=== PATIENT | male | born 1965 | race Caucasian/White ===

== ENCOUNTER 2016-08-13 09:54 | Emergency (ER) | payer SELFPAY ==
[~2016-08-13] VITALS: Ht 188 cm; Wt 78.0 kg
[~2016-08-13 09:54] MED LIST: LORT5TAB PO; Z.0.NO CURRENT MEDS
[2016-08-13 09:59] VITALS: BP 150/101; PULSE 70; RESP 16; TEMP 97.6; O2SAT 97
[2016-08-13] MEDS ORDERED: PROPARACAINE HCL 0.5% OPHT SOLN 15 ML BTL LEFT EYE ONE (10:15)
[2016-08-13] MEDS ORDERED: BACIOIN6 EACH EYE (10:23)
[2016-08-13] MEDS ORDERED: NORC5TAB PO (10:23)
--- NOTE | 2016-08-13 10:23 | PD ---
HPI Chief Complaint: Foreign Body Time Seen by Provider: 10:04 Travel History International Travel<30 days: No Contact w/Intl Traveler<30days: No Traveled to known affect area: No History of Present Illness HPI The patient is a 51-year-old male who presents emergency department for foreign-body the left eye. The patient states he obtained a little foreign- body to the left eye 3 days ago. The patient thinks it is a piece of metal in the left eye, he does note mild irritation from the affected eye, but denies any acute visual acuity changes. The patient cannot recall his last tetanus shot. Patient does state the foreign-body was obtained 3 days ago. He denies any photophobia, does note mild irritation and redness over the affected area. He does note mild excessive tearing, but denies any drainage. PFSH Past Medical History Diminished Hearing: No Inguinal Hernia: Yes (CHILDHOOD/repaired) Past Surgical History Abdominal Surgery: Yes (bilat HERNIA REPAIR ) Other Surgery: Yes (bilat inguinal hernia repair) Social History Alcohol Use: Yes (1 6 PACK DAILY) Tobacco Use: Yes (1PPD) Substance Use: Yes (MARIJUANA) Allergies-Medications (Allergen,Severity, Reaction): Coded Allergies: No Known Allergies (Verified , 08/13/16) Reported Meds & Prescriptions Reported Meds & Active Scripts Active No Active Prescriptions or Reported Medications Review of Systems Except as stated in HPI: all other systems reviewed are Neg Eyes: Positive: Redness, Foreign Body Sensation, Pain, Tearing, No: Blurred Vision, Photophobia, Drainage, Visual changes, Blindness HENT: No: Headaches Skin: Positive Other (cannot recall last tetanus shot) Physical Exam Narrative GENERAL: Awake, alert, pleasant 51-year-old male who appears his stated age and is in no acute respiratory distress. SKIN: Warm and dry. HEAD: Atraumatic. Normocephalic. EYES: Pupils are 4 mm bilateral and reactive. EOMs are intact. Vision of the left eye is 20/40, right eye 20/40, both eyes 20/20. Inspection the left eye does reveal foreign body to 2 o'clock position overlying the iris. Mild surrounding erythema. No obvious rust ring. ENT: No nasal bleeding or discharge. Mucous membranes pink and moist. NECK: Trachea midline. No JVD. MUSCULOSKELETAL: No obvious deformities. No clubbing. No cyanosis. No edema. NEUROLOGICAL: Awake and alert. No obvious cranial nerve deficits. Motor grossly within normal limits. Normal speech. PSYCHIATRIC: Appropriate mood and affect; insight and judgment normal. Data Data Last Documented VS Vital Signs Date Time Temp Pulse Resp B/P Pulse Ox O2 Delivery O2 Flow Rate FiO2 08/13/16 09:59 97.6 70 16 150/101 97 Orders Proparacaine 0.5% Opth Soln (Alcaine 0.5 (08/13/16 10:15) [facility] Medical Decision Making Medical Screen Exam Complete: Yes Emergency Medical Condition: Yes Medical Record Reviewed: Yes Differential Diagnosis Differential diagnosis includes foreign body, metallic object, Rust ring, conjunctivitis, uveitis, iritis, corneal abrasion, corneal ulcer. Narrative Course Physical examination reveals a foreign body to 2 o'clock position. One drop of proparacaine was applied left eye and I used a 20-gauge needle to try to remove some of the foreign body. However, foreign body was embedded. Therefore, the patient will be placed on erythromycin ointment to soften the foreign body and referred ophthalmology on Monday to have burning and removal of the foreign body. The patient's tetanus shot was updated. The patient will also be prescribed pain medication. He is advised to wear safety goggles in the future. Diagnosis Primary Impression: FOREIGN BODY IN [place], LEFT EYE, INITIAL ENCOUNTER Referrals: Elham Barnett MD 2 days Patient Instructions: General Instructions Additional Instructions: Erythromycin ointment and [place] as directed. Call ophthalmology office on Monday to be evaluated for possible burning and removal of left Med/Other Pt SpecificInfo: Prescription(s) given Scripts Hydrocodone-Acetaminophen ([place])5-325 mg Tab1 Tab PO Q6H PRN (PAIN) #15 TAB Ref 0 Prov:Sánchez Joseph MD 08/13/16 Bacitracin Opth Oint 500 Unit/Gm Oint1 Applic EACH EYE QID 7 Days Ref 0 Prov:Sánchez Joseph MD 08/13/16 Disposition: 01 DISCHARGE HOME Condition: Stable Sánchez Joseph MD Aug 13, 2016 10:23
[2016-08-13] MEDS ORDERED: TETANUS/DIPHTHERIA TOXOID ADULT 0.5 ML VIAL IM ONE (10:30)
== END 2016-08-13 10:34 | disposition home or self-care (01) ==
LOC: PHEFT 09:54
DX: T15.02XA Foreign body in cornea, left eye, initial encounter (principal); F17.210 Nicotine dependence, cigarettes, uncomplicated; F12.90 Cannabis use, unspecified, uncomplicated; Z23 Encounter for immunization; X58.XXXA Exposure to other specified factors, initial encounter
CPT/HCPCS: 65220; 90471; 90714